=== PATIENT | male | born 1945 | race Caucasian/White ===

== ENCOUNTER 2019-04-18 11:37 | Outpatient (CLI) | payer MEDICARE, OTHER ==
[2019-04-18 19:19] LABS: CHOL/HDL RATIO 3.1 (<5.0); CHOLESTEROL 234 mg/dL; HDL CHOLESTEROL 75 mg/dL; LDL CHOLESTEROL,CALCULATED 137 mg/dL; LDL/HDL RATIO 1.8 (<3.6); VLDL CHOLESTEROL 22 mg/dL
== END 2019-04-18 23:59 | disposition home or self-care (01) ==
LOC: LAB.WCP 11:37
PROVIDERS: ATTEND Physician Assistant
DX: Z79.899 Other long term (current) drug therapy (principal); Z12.5 Encounter for screening for malignant neoplasm of prostate
CPT/HCPCS: 36415; 80061; G0103; 83721; 84153

== ENCOUNTER 2019-04-28 08:00 | Outpatient (CLI) | payer MEDICARE, OTHER ==
[2019-04-28 12:07] LABS: BASOPHILS # (AUTO) 0.1 10^3/uL (0.0-0.1); BASOPHILS % (AUTO) 1.1 %; EOSINOPHILS # (AUTO) 0.2 10^3/uL (0.0-0.7); EOSINOPHILS % (AUTO) 3.2 %; HGB - HEMOGLOBIN 14.7 g/dL (14.0-18.0); LYMPHOCYTES # (AUTO) 1.3 10^3/uL (1.5-3.5); LYMPHOCYTES % (AUTO) 21.2 %; MEAN CORPUSCULAR HGB CONC 33.5 g/dL (32.0-36.0); MEAN CORPUSCULAR VOLUME 98.4 fL (80.0-94.0); MEAN PLATELET VOLUME 11.1 fL (7.4-11.4); MONOCYTES % (AUTO) 15.5 %; NEUTROPHILS # (AUTO) 3.7 10^3/uL (1.5-6.6); NEUTROPHILS % (AUTO) 58.7 %; PLT - PLATELET COUNT 290 10^3/uL (130-450); RED BLOOD COUNT 4.46 10^6/uL (4.70-6.10); RED CELL DISTRIBUTION WIDTH 13.8 % (12.0-15.0); WHITE BLOOD COUNT 6.3 x10^3/uL (4.8-10.8)
[2019-04-28 12:51] LABS: ALBUMIN 3.9 g/dL (3.2-5.5); ALBUMIN/GLOBULIN RATIO 1.1 (1.0-2.2); BILIRUBIN,TOTAL 0.8 mg/dL (0.2-1.0); CALCIUM 9.8 mg/dL (8.5-10.3); CREATININE 0.9 mg/dL (0.6-1.2); TOTAL PROTEIN 7.3 g/dL (6.7-8.2)
== END 2019-04-28 23:59 | disposition home or self-care (01) ==
LOC: LAB.WCP 08:00
PROVIDERS: ATTEND Physician Assistant
DX: I10 Essential (primary) hypertension (principal)
CPT/HCPCS: 36415; 80053; 85025

== ENCOUNTER 2019-09-22 12:59 | Outpatient (CLI) | payer MEDICARE, OTHER ==
--- NOTE | 2019-09-23 08:34 | XRAY Report ---
Reason: ESSENTIAL (PRIMARY) HYPERTENSION Procedure Date: 09/22/2019 Accession Number: [id number] / [id number] Procedure: XR - Chest 2 View X-Ray CPT Code: 06576 Final Report FULL RESULT: EXAM: CHEST RADIOGRAPHY EXAM DATE: 09/22/2019 01:11 PM. CLINICAL HISTORY: Hypertension COMPARISON: None. TECHNIQUE: 2 views. FINDINGS: Lungs/Pleura: Lungs are well expanded. There is emphysema. There is reticular opacity with the lower lungs which may represent atelectasis or scarring. No evidence of acute consolidation. No pleural effusion. No pneumothorax. Mediastinum: Heart size is within normal limits. There are thoracic aorta tortuosity and calcification. Other: Bones are osteopenic. 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 IMPRESSION: 1. Lungs are well-expanded. There is emphysema. 2. There is reticular opacity within the lower lungs which may represent scarring or atelectasis. 3. There is thoracic aorta tortuosity and calcification. 4. 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 5. No acute intrathoracic plain film abnormality. RADIA
== END 2019-09-22 13:00 | disposition home or self-care (01) ==
LOC: DI 12:59
PROVIDERS: ATTEND Surgery
DX: Z01.810 Encounter for preprocedural cardiovascular examination (principal); K40.20 Bilateral inguinal hernia, without obstruction or gangrene, not specified as recurrent; J43.9 Emphysema, unspecified; R91.8 Other nonspecific abnormal finding of lung field; I70.0 Atherosclerosis of aorta
CPT/HCPCS: 71046

== ENCOUNTER 2019-09-25 07:04 | Day surgery (SDC) | payer MEDICARE, OTHER ==
[2019-09-25] MEDS ORDERED: LACTATED RINGERS 1,000 ML IV ONE (08:05)
[2019-09-25] MEDS ORDERED: BUPIVACAINE 0.5% PF 30 ML VIAL ONE (08:24)
[2019-09-25] MEDS ORDERED: LIDOCAINE 1%-EPI 1:100000 20 ML MDV ONE (08:24)
[2019-09-25] MEDS ORDERED: ceFAZolin 1 GM VIAL ONE (08:25)
--- NOTE | 2019-09-25 08:25 | ANESTHESIA ---
Pre-Anesthesia VS, & Labs - Diagnosis bilateral inguinal hernias - Procedure bilateral inguinal hernia repairs with mesh Vital Signs: Temp Pulse Resp BP Pulse Ox 36.6 C 87 16 145/79 H 97 09/25/19 07:29 09/25/19 07:29 09/25/19 07:29 09/25/19 07:29 09/25/19 07:29 Height 5 ft 11 in Weight (kg) 81.8 kg - NPO >8 hours Last Fluid Intake: black coffee at 0530 Home Medications and Allergies Home Medications: Ambulatory Orders amLODIPine [Norvasc] 10 mg PO DAILY 09/22/19 amLODIPine [Norvasc] 10 mg PO DAILY 09/22/19 Allergies/Adverse Reactions: Allergies Allergy/AdvReac Type Severity Reaction Status Date / Time No Known Drug Allergies Allergy Verified 09/22/19 12:46 Anes History & Medical History - Anesthetic History Anesthesia Complications: reports: No previous complications - Medical History Cardiovascular: reports: Hypertension, Other (>4 mets) Pulmonary: reports: None Gastrointestinal: reports: None Urinary: reports: None Neuro: reports: None Musculoskeletal: reports: None Endocrine/Autoimmune: reports: None Blood Disorders: reports: None Skin: reports: Psoriasis Smoking Status: Former smoker (Quit 20 years ago) Psychosocial: reports: Alcohol (Daily beer and wine use) - Surgical History Eyes Ears Nose Throat (EENT): Tonsil/Adenoidectomy Orthopedic: Other Exam General: Alert, Oriented x3, Cooperative, No acute distress Dental: Partials Upper, Partials Lower Mouth Openin Fingerbreadth Neck Mobility: Normal Mallampati classification: III Thyromental Distance: greater than 6 cm Respiratory: Lungs clear, Normal breath sounds, No respiratory distress, No accessory muscle use Cardiovascular: Regular rate, Normal S1, Normal S2, No murmurs Mental/Cognitive Status: Alert/Oriented X3, Normal for patient Plan Anesthesia Type: General Consent for Procedure(s) Verified and Reviewed: Yes Code Status: Attempt Resuscitation ASA classification: 2-Mild systemic disease Is this case an emergency?: No
[2019-09-25] MEDS ORDERED: fentaNYL 100 MCG/2 ML VIAL IVP ONE (09:50)
[2019-09-25] MEDS ORDERED: PROPOFOL 200 MG/20 ML VIAL IVP ONE (09:50)
[2019-09-25] MEDS ORDERED: DEXAMETHASONE 4 MG/ML VIAL IVP ONE (09:50)
[2019-09-25] MEDS ORDERED: ePHEDrine 50 MG/ML VIAL IVP ONE (09:50)
[2019-09-25] MEDS ORDERED: LIDOCAINE-MPF 2% 5 ML VIAL IM ONE (09:50)
[2019-09-25] MEDS ORDERED: ONDANSETRON 4 MG/2 ML VIAL IVP ONE (09:50)
[2019-09-25] MEDS ORDERED: MIDAZOLAM 2 MG/2 ML VIAL IVP ONE (09:50)
[2019-09-25] MEDS ORDERED: ceFAZolin 1 GM VIAL IR ONE (10:16)
[2019-09-25] MEDS ORDERED: BUPIVACAINE 0.5% PF 30 ML VIAL INFIL ONE (10:17)
[2019-09-25] MEDS ORDERED: LIDOCAINE 1%-EPI 1:100000 30 ML MDV SUBQ ONE (10:17)
[2019-09-25] MEDS ORDERED: IBUPROFEN 600 MG TABLET PO PRN (11:25)
[2019-09-25] MEDS ORDERED: ACETAMINOPHEN 325 MG TABLET PO PRN (11:25)
[2019-09-25] MEDS ORDERED: ONDANSETRON 4 MG/2 ML VIAL IVP PRN (11:25)
[2019-09-25] MEDS ORDERED: oxyCODONE 5 MG TABLET PO PRN (11:25)
--- NOTE | 2019-09-25 11:25 | OPERATIVE REPORT ---
Operative Report - General Procedure Date: 09/25/19 Planned Procedure: Bilateral Inguinal Hernia Repair Pre-Op Diagnosis: Bilateral Inguinal Hernia Procedure Performed: Bilateral Inguinal Hernia Repair Post Op Diagnosis: Bilateral Inguinal Hernia - Procedure Note Primary Surgeon: Angela Anesthesia Provider: ANDRAE Beatty Anesthesia Technique: General LMA, Local, Regional block IV Fluids (mL): 500 Estimated Blood Loss (mL): 5 Indications: Large bilateral inguinal hernias Findings: Large indirect hernias bilaterally. Complications: None apparent - Other Other Information/Narrative: After obtaining informed consent, the patient is brought to the operating room and placed in the supine position on the operating table. Following successful induction of general endotracheal anesthesia, appropriate padding of all bony prominences, and placement of appropriate monitors, the abdomen was prepped and draped in the standard surgical fashion. A timeout was held per scope protocol. All elements of the surgical safety checklist were followed before, during, and after the procedure. We began the procedure by infiltrating a mixture of local anesthetics medial to the anterior superior iliac spine on the right. This was done to create an ileal inguinal nerve block. We then selected a site for an incision in the right lower quadrant just superior and lateral to the right pubic tubercle. This area was anesthetized with additional local anesthetic and an incision was created here.The incision was carried down through the skin and subcutaneous tis betty to reveal the hernia. The external oblique aponeurosis was competed attenuated over the hernia sac. We were able to identify it laterally. A self retaining retractor was carefully placed. The ilioinguinal nerve was immediately identified and divided. We continued by identifying the spermatic cord and gently encircling it with a Karyna drain. The hernia sac was carefully dissected free from the cord structures and was noted to be in the inferior medial position. The sac was in the indirect position. It was very large and involved a loop of colon as well as preperitoneal fat. We carefully dissected the spermatic cord from the sac. The hernia sac was then placed back into the abdominal cavity. We elected to repair the hernia with a large Prolene hernia system mesh implant. This was dipped in Ancef containing solution and then deployed into the defect. The posterior leaflet was straightened and flattened in the preperitoneal space. The anterior leaflet was then nicked medi ally to provide a place for the spermatic cord and then closed with a Vicryl suture. The more inferior aspect was then sewn to Ashok's ligament medially. Laterally it was tucked under the external oblique aponeurosis. The wound was checked for hemostasis and irrigated with warm saline solution. It was aspirated free of all fluid and particulate matter. The extra oblique aponeurosis was then closed with a running locking Vicryl suture Stefany's fascia was closed with Vicryl suture and Monocryl stitches were placed in the skin. We turned our attention to the left side. We began the procedure by infiltrating a mixture of local anesthetics medial to the anterior superior iliac spine on the Left. This was done to create an ileal inguinal nerve block. We then selected a site for an incision in the Left lower quadrant just superior and lateral to the Left pubic tubercle. This area was anesthetized with additional local anesthetic and an incision was created here.The incision was carried down through the skin and subcutaneous tissue to reveal the fascia of the external oblique aponeurosis. Retractor was placed and the aponeurosis was opened in direction of its fibers. The ilioinguinal nerve was immediately identifiedAnd preserved. We continued by identifying the spermatic cord and gently encircling it with a Arcadia drain. The hernia sac was carefully dissected free from the cord structures and was noted to be in the inferior medial position. The sac was in the indirect position. We carefully dissected the spermatic cord from the sac. The hernia sac was then placed back into the abdominal cavity. We elected to repair the hernia with a large Prolene hernia system mesh implant. This was dipped in Ancef containing solution and then deployed into the defect. The posterior leaflet was straightened and flattened in the preperitoneal space. The anterior leaflet was then nicked medially to provide a place for the spermatic cord and then closed with a Vicryl suture. The more inferior aspect was then sewn to Ashok's ligament medially. Laterally it was tucked under the external oblique aponeurosis. The wound was checked for hemostasis and irrigated with warm saline solution. It was aspirated free of all fluid and particulate matter. The extra oblique aponeurosis was then closed with a running locking Vicryl suture Stefany's fascia was closed with Vicryl suture and Monocryl stitches were placed in the skin. All sponge, needle, and instrument counts were correct at the conclusion of the case. The patient was allowed awaken from anesthesia without difficulty and taken to the postanesthesia care unit in good condition.
[2019-09-25] MEDS ORDERED: oxyCODONE 5 MG TABLET ONE (12:25)
[2019-09-25 12:36] VITALS: BP 136/69
== END 2019-09-25 07:05 | disposition home or self-care (01) ==
LOC: SDS 07:04
PROVIDERS: ATTEND Surgery
PROC: 0YUA0JZ Supplement Bilateral Inguinal Region with Synthetic Substitute, Open Approach (ICD-10-PCS; principal; 2019-09-25 08:30)
DX: K40.20 Bilateral inguinal hernia, without obstruction or gangrene, not specified as recurrent (principal); I10 Essential (primary) hypertension; Z87.891 Personal history of nicotine dependence
CPT/HCPCS: 49505; A9270; C1781; J7120

== ENCOUNTER 2020-06-12 08:00 | Outpatient (CLI) | payer MEDICARE, OTHER ==
[2020-06-12 12:11] LABS: BASOPHILS # (AUTO) 0.1 10^3/uL (0.0-0.1); BASOPHILS % (AUTO) 1.3 %; EOSINOPHILS # (AUTO) 0.2 10^3/uL (0.0-0.7); EOSINOPHILS % (AUTO) 2.2 %; HGB - HEMOGLOBIN 15.8 g/dL (14.0-18.0); LYMPHOCYTES % (AUTO) 14.9 %; MEAN CORPUSCULAR HEMOGLOBIN 32.7 pg (27.0-31.0); MEAN CORPUSCULAR VOLUME 96.3 fL (80.0-94.0); MEAN PLATELET VOLUME 11.4 fL (7.4-11.4); MONOCYTES # (AUTO) 1.1 10^3/uL (0.0-1.0); MONOCYTES % (AUTO) 15.8 %; NEUTROPHILS # (AUTO) 4.4 10^3/uL (1.5-6.6); NEUTROPHILS % (AUTO) 65.5 %; PLT - PLATELET COUNT 258 10^3/uL (130-450); RED BLOOD COUNT 4.83 10^6/uL (4.70-6.10); WHITE BLOOD COUNT 6.7 x10^3/uL (4.8-10.8)
[2020-06-12 12:31] LABS: ALBUMIN 3.8 g/dL (3.2-5.5); ALKALINE PHOSPHATASE 68 IU/L (42-121); ALT ALANINE AMINOTRANSFERASE 30 IU/L (10-60); AST ASPARTATE AMINOTRANSFERASE 35 IU/L (10-42); BUN - BLOOD UREA NITROGEN 12 mg/dL (6-20); CALCIUM 9.8 mg/dL (8.5-10.3); CARBON DIOXIDE - CO2 26 mmol/L (21-32); CHLORIDE 96 mmol/L (101-111); CHOL/HDL RATIO 3.1 (<5.0); CHOLESTEROL 173 mg/dL; GLUCOSE 106 mg/dL (70-100); HDL CHOLESTEROL 56 mg/dL; LDL CHOLESTEROL,CALCULATED 103 mg/dL; LDL/HDL RATIO 1.8 (<3.6); SODIUM 131 mmol/L (135-145); TOTAL PROTEIN 7.6 g/dL (6.7-8.2); VLDL CHOLESTEROL 14 mg/dL
== END 2020-06-12 23:59 | disposition home or self-care (01) ==
LOC: LAB.WCP 08:00
PROVIDERS: ATTEND Physician Assistant Medical
DX: I10 Essential (primary) hypertension (principal); E78.5 Hyperlipidemia, unspecified; Z12.5 Encounter for screening for malignant neoplasm of prostate
CPT/HCPCS: 36415; 80053; 80061; 85025; G0103; 83721; 84153

== ENCOUNTER 2022-04-17 11:55 | Emergency (ER) | payer MEDICARE, OTHER ==
[2022-04-17] MEDS ORDERED: ONDANSETRON 4 MG/2 ML VIAL IVP STA (12:12)
[2022-04-17] MEDS ORDERED: HYDROmorphone 1 MG/ML CARPUJECT IVP STA (12:12)
--- NOTE | 2022-04-17 12:13 | ED Physician Documentation ---
History of Present Illness - Stated complaint Stated Complaint: LEG WEAKNESS - Chief complaint Chief Complaint: General - History obtained from History obtained from: Patient, Friend - Additonal information Additional information: 76-year-old gentleman with history of bilateral inguinal hernia repairs presents with groin pain starting about 2 days ago. Pain was bad enough that he has had difficulty ambulating with it. He notes a lump there. He feels like he has not been very hungry with this, and as such his bowel movements have been decreased but not absent. Denies vomiting or fevers. Review of Systems Constitutional: reports: Reviewed and negative Eyes: reports: Reviewed and negative Cardiac: reports: Reviewed and negative Respiratory: reports: Reviewed and negative PD PAST MEDICAL HISTORY - Past Medical History Cardiovascular: Hypertension, Other (>4 mets) Respiratory: None Neuro: None Endocrine/Autoimmune: None GI: None : None HEENT: Chronic vision loss Psych: None Musculoskeletal: None Derm: Psoriasis - Past Surgical History Ortho: Other HEENT: Tonsil/Adenoidectomy - Present Medications Home Medications: Ambulatory Orders Medication Instructions Recorded Confirmed amLODIPine [Norvasc] 10 mg PO DAILY 09/22/19 09/25/19 oxyCODONE [Roxicodone] 5 mg PO Q4H PRN #30 tablet 09/25/19 HYDROcod/ACETAM 5/325 [Apache 5/325] 1 - 2 tab PO Q6H PRN #20 tablet 04/17/22 - Allergies Allergies/Adverse Reactions: Allergies Allergy/AdvReac Type Severity Reaction Status Date / Time No Known Drug Allergies Allergy Verified 04/17/22 12:05 - Social History Smoking Status: Former smoker (Quit 20 years ago) PD ED PE NORMAL - Vitals Vital signs reviewed: Yes - General General: Alert and oriented X 3, No acute distress - Cardiac Cardiac: RRR, No murmur - Respiratory Respiratory: No respiratory distress, Clear bilaterally - Abdomen Abdomen: Normal bowel sounds, Soft, Non tender, Other (He has an incarcerated right inguinal hernia which is tender but without overlying skin changes. I was partially able to reduce it during exam but limited by pain and initial attempt was aborted to allow him to get some analgesia.) - Back Back: No CVA TTP, No spinal TTP - Derm Derm: Normal color, Warm and dry - Neuro Neuro: Alert and oriented X 3, Normal speech Results - Vitals Vitals: Vital Signs - 24 hr 04/17/22 04/17/22 04/17/22 12:02 13:29 13:42 Temperature 36.1 C L Heart Rate 87 83 92 Respiratory 24 17 18 Rate Blood Pressure 152/80 H 125/45 L 134/75 H O2 Saturation 99 95 96 Oxygen O2 Source Room air - Labs Labs: Laboratory Tests 04/17/22 04/17/22 12:23 12:23 WBC 8.3 RBC 4.59 L Hgb 15.7 Hct 44.7 MCV 97.4 H MCH 34.2 H MCHC 35.1 RDW 13.1 Plt Count 238 MPV 9.7 Neut # (Auto) 6.5 Lymph # (Auto) 0.7 L Taney # (Auto) 1.0 Eos # (Auto) 0.0 Baso # (Auto) 0.1 Absolute Nucleated RBC 0.00 Nucleated RBC % 0.0 Sodium 133 L Potassium 4.1 Chloride 94 L Carbon Dioxide 26 Anion Gap 13.0 BUN 16 Creatinine 1.0 Estimated GFR (MDRD) 72 L Glucose 136 H Calcium 9.9 PD MEDICAL DECISION MAKING - ED course ED course: 76-year-old gentleman presents with an incarcerated right sided hernia. I was unable to reduce it on initial examination, but after 1 mg each of Dilaudid and 2 mg of midazolam I was able to reduce it. On reexamination after the meds had worn off he was feeling much better. The hernia had recurred but I was able to reduce it more easily this time without sedationAnalgesia. It seems to slide in and out now, and discussed with him that I expected him to have some ongoing symptoms until definitive repair as well as the symptoms that would necessitate return for more urgent surgical intervention. Departure - Departure Disposition: 01 Home, Self Care Clinical Impression: Incarcerated right inguinal hernia Condition: Good Record reviewed to determine appropriate education?: Yes Instructions: ED Hernia Inguinal Follow-Up: [facility] [Provider Group] Prescriptions: HYDROcod/ACETAM 5/325 [Apache 5/325] 1 - 2 tab PO Q6H PRN #20 tablet PRN Reason: Pain Comments: We were able to get your hernia in today, but it does seem to go in and out fairly easily. Unfortunately this means I expect you to have some level of discomfort until you have it fixed. You should call the surgeons office today or Wednesday for the next available appointment for consideration for operative repair. Until then it is probably reasonable to wear a hernia belt, one option available at [facility] is: FlexaMed Right Side Inguinal Hernia Support Truss Belt with Compression Pad I sent a prescription for pain medication to [facility] in [place]. Return for new or worsening symptoms, for vomiting or other concerns. I am prescribing a short course of narcotic pain medication for you. These are potentially dangerous and addictive medications that should be used carefully. These medications may constipate you. Take an [id number] stool softener (docusate) twice daily with plenty of water while taking these medications. If you go 24 hours without a bowel movement, take [id number] miralax, per package instructions. Do not drink or drive while taking these medications. If you received narcotic or sedating medications while in the emergency department, do not drive for 24 hours. Store this medication in a safe, secure place and out of reach of children. It is a violation of federal law to give or sell this medication to another person or to use in a manner other than prescribed. The ED will not refill narcotic prescriptions, including prescriptions lost or stolen. To dispose of unwanted medications: 1. [facility] [address] in [place] has a medication drop box. They accept prescription medications (in pill form) Wednesday through Wednesday 9:00 a.m. to 5:00 p.m. 2. [facility] accepts prescription medications (in pill form only) for disposal year round. Call for more information. 3. Contact the [facility] for the next [facility] sponsored prescription d rug collection event. , [phone], or [phone]; Note that many narcotic pain relievers also contain Tylenol/acetaminophen. Please ensure that your total dose of acetaminophen from all sources does not exceed 3 g (3000 mg) per day. Discharge Date/Time: 04/17/22 13:45
[2022-04-17 12:28] LABS: BASOPHILS # (AUTO) 0.1 10^3/uL (0.0-0.1); BASOPHILS % (AUTO) 0.6 %; EOSINOPHILS % (AUTO) 0.1 %; HCT - HEMATOCRIT 44.7 % (42.0-52.0); HGB - HEMOGLOBIN 15.7 g/dL (14.0-18.0); LYMPHOCYTES # (AUTO) 0.7 10^3/uL (1.5-3.5); LYMPHOCYTES % (AUTO) 8.1 %; MEAN CORPUSCULAR HEMOGLOBIN 34.2 pg (27.0-31.0); MEAN CORPUSCULAR HGB CONC 35.1 g/dL (32.0-36.0); MEAN CORPUSCULAR VOLUME 97.4 fL (80.0-94.0); MEAN PLATELET VOLUME 9.7 fL (7.4-11.4); MONOCYTES % (AUTO) 12.3 %; NEUTROPHILS # (AUTO) 6.5 10^3/uL (1.5-6.6); NEUTROPHILS % (AUTO) 78.3 %; PLT - PLATELET COUNT 238 10^3/uL (130-450); RED BLOOD COUNT 4.59 10^6/uL (4.70-6.10); RED CELL DISTRIBUTION WIDTH 13.1 % (12.0-15.0); WHITE BLOOD COUNT 8.3 x10^3/uL (4.8-10.8)
[2022-04-17 12:38] LABS: CALCIUM 9.9 mg/dL (8.5-10.3); POTASSIUM 4.1 mmol/L (3.5-5.0)
[2022-04-17] MEDS ORDERED: MIDAZOLAM 2 MG/2 ML VIAL IVP STA (12:51)
[2022-04-17 13:45] VITALS: BP 134/75
== END 2022-04-17 13:45 | disposition home or self-care (01) ==
LOC: ED 11:55
DX: K40.30 Unilateral inguinal hernia, with obstruction, without gangrene, not specified as recurrent (principal)
CPT/HCPCS: 36415; 80048; 85025; 96374; 96375; 99283; 99284; J1170

== ENCOUNTER 2022-04-30 11:55 | Day surgery (SDC) | payer MEDICARE, OTHER ==
[2022-04-30] MEDS ORDERED: TAMSULOSIN 0.4 MG CAPSULE ONE (12:19)
[2022-04-30] MEDS ORDERED: ACETAMINOPHEN 500 MG TABLET PO ONE (12:19)
[2022-04-30] MEDS ORDERED: CEFAZOLIN 2G/50ML 0.9% NS 2 GM/50 ML BAG IV ONE (12:19)
[2022-04-30] MEDS ORDERED: LACTATED RINGERS 1,000 ML IV ONE ×2 (12:22→16:29)
[2022-04-30] MEDS: GABAPENTIN 300 MG CAPSULE PO ONE ×2 (12:47→17:24)
--- NOTE | 2022-04-30 13:06 | ANESTHESIA ---
Pre-Anesthesia VS, & Labs - Diagnosis ventral hernia - Procedure ventral hernia repair Vital Signs: Temp Pulse Resp BP Pulse Ox O2 Flow Rate 36.3 C L 70 16 174/79 H 98 0 04/30/22 12:48 04/30/22 12:48 04/30/22 12:48 04/30/22 12:48 04/30/22 12:48 04/30/22 12:48 Height: 6 ft 1 in Weight (kg): 72.5 kg Body Mass Index: 21.0 BMI Classification: Normal - NPO >8 hours Home Medications and Allergies amLODIPine [Norvasc] 10 mg PO DAILY 09/22/19 Allergies/Adverse Reactions: Allergies Allergy/AdvReac Type Severity Reaction Status Date / Time No Known Drug Allergies Allergy Verified 04/17/22 12:05 Anes History & Medical History - Anesthetic History Anesthesia Complications: reports: No previous complications Family history of Anesthesia Complications: Denies Family history of Malignant Hyperthermia: Denies - Medical History Cardiovascular: reports: Hypertension, Other Pulmonary: reports: None Gastrointestinal: reports: None Urinary: reports: None Neuro: reports: None Musculoskeletal: reports: None Endocrine/Autoimmune: reports: None Blood Disorders: reports: None Skin: reports: Psoriasis Smoking Status: Former smoker (Quit 20 years ago) - Surgical History Eyes Ears Nose Throat (EENT): reports: Tonsil/Adenoidectomy Orthopedic: reports: Other Exam General: Alert, Oriented x3, Cooperative Dental: Dentures full Upper, Dentures full Lower Mouth Openin Fingerbreadth Neck Mobility: Normal Mallampati classification: II Thyromental Distance: 4-6 cm Respiratory: Lungs clear Cardiovascular: Regular rate Plan Anesthesia Type: General Consent for Procedure(s) Verified and Reviewed: Yes Code Status: Attempt Resuscitation ASA classification: 2-Mild systemic disease Is this case an emergency?: No
[2022-04-30] MEDS ORDERED: METOCLOPRAMIDE 10 MG/2 ML VIAL IVP PRN (13:08)
[2022-04-30] MEDS ORDERED: MORPHINE 2 MG/ML CARPUJECT IVP PRN (13:08)
[2022-04-30] MEDS ORDERED: NALOXONE 0.4 MG/ML VIAL IVP PRN (13:08)
[2022-04-30] MEDS ORDERED: fentaNYL 100 MCG/2 ML VIAL IVP PRN (13:08)
[2022-04-30] MEDS ORDERED: ONDANSETRON 4 MG/2 ML VIAL IVP PRN (13:08)
[2022-04-30] MEDS ORDERED: ATROPINE ABBOJECT 1 MG/10 ML SYRINGE IVP PRN (13:08)
[2022-04-30] MEDS ORDERED: HYDROmorphone 0.5 MG/0.5 ML SYRINGE IVP PRN (13:08)
[2022-04-30] MEDS ORDERED: ePHEDrine 50 MG/ML VIAL IVP PRN (13:08)
[2022-04-30] MEDS ORDERED: LIDOCAINE-MPF 2% 5 ML VIAL ONE (13:15)
[2022-04-30] MEDS ORDERED: PROPOFOL 200 MG/20 ML VIAL IVP ONE (13:15)
[2022-04-30] MEDS ORDERED: ONDANSETRON 4 MG/2 ML VIAL ONE (13:17)
[2022-04-30] MEDS ORDERED: DEXAMETHASONE 4 MG/ML VIAL ONE (13:17)
[2022-04-30] MEDS ORDERED: ROCURONIUM 50 MG/5 ML VIAL ONE (13:17)
[2022-04-30] MEDS ORDERED: BUPIVACAINE 0.25% PF 10 ML VIAL ONE ×2 (13:37→14:55)
[2022-04-30] MEDS ORDERED: LIDOCAINE 1% 50 ML MDV ONE (13:37)
[2022-04-30] MEDS ORDERED: LACTATED RINGERS 1,000 ML IV SCH (14:00)
[2022-04-30] MEDS ORDERED: fentaNYL 100 MCG/2 ML VIAL ONE (14:17)
[2022-04-30] MEDS ORDERED: BUPIVACAINE 0.25% PF 30 ML VIAL SUBQ ONE (14:38)
[2022-04-30] MEDS ORDERED: SUGAMMADEX 200 MG/2 ML VIAL IVP ONE (16:16)
[2022-04-30] MEDS ORDERED: oxyCODONE 5 MG TABLET PO PRN (16:29)
[2022-04-30] MEDS ORDERED: ACETAMINOPHEN 500 MG TABLET PO PRN (16:30)
--- NOTE | 2022-04-30 16:33 | OPERATIVE REPORT ---
Operative Report - General Procedure Date: 04/30/22 Planned Procedure: open repair recurrent right inguinal hernia Pre-Op Diagnosis: incarcerated recurrent right inguinal hernia Procedure Performed: open repair incarcerated recurrent slider type hernia excision ilioinguinal and iliohypogastric nerve Post Op Diagnosis: recurrent incarcerated slider type inguinal hernia - Procedure Note Primary Surgeon: nenita tom Anesthesia Technique: General LMA, Local Pathology: not sent Estimated Blood Loss (mL): 10 Drain/Tube Type: Other (none) Findings: as above. prior mesh densely scarred to cord and completely free from the abdominal wall nerves scarred to mesh - Other Other Information/Narrative: The patient was properly identified brought to the operating room and placed in supine position. Laryngeal mask anesthesia was induced. Hernia was incarcerated. A ball of mesh was palpable in the subcutaneous tissue. Sequential compression devices were placed. He was prepped and draped in a sterile fashion and given preoperative antibiotics. A 6 cm incision was made 2 cm cephalad of the pubic tubercle. Dissection proceeded with cutting current. Superficial epigastric vein was divided and tied with 3-0 Vicryl. Aponeurosis was opened in the direction of its fibers. Cord structures hernia sac and ball of mesh was mobilized and brought up. The shelving border of Poupart's ligament was identified and defined. The ilioinguinal nerve was densely scarred towards the mesh and fascia. This was excised back to towards muscle. The mesh was completely free-floating densely scarred to the cord structures. It was not adherent to the abdominal wall or the pubic tubercle. The cord structures were splayed apart and went around the mesh. The mesh was carefully mobilized off from the cord structures except for the distal 10%. 90% of the mesh was removed from the cord structures. The iliohypogastric nerve was also densely scarred to the mesh. The iliohypogastric nerve was removed back to musculature. The hernia sac was then opened. He had a slider type hernia with colon. The colon was carefully mobilized off from the hernia sac using sharp dissection and reduced. The hernia sac was then closed with a 3-0 silk pursestring suture. Herniated preperitoneal adipose tissue was removed with clamps and 3-0 silk tie. Polypropylene mesh was then cut to size and placed Mingo fashion. The mesh was secured with multiple interrupted 0 Ethibond sutures at the pubic tubercle area along the shelving border of Poupart's ligament and medially along musculature. The medial tail of the mesh was secured to the shelving border Poupart's ligament with 3 interrupted 0 Ethibond sutures recreating the internal ring of appropriate size. There were no apparent complications. The aponeurosi s was closed with a running 2-0 Vicryl suture. Stefany's was closed with interrupted 3-0 Vicryl suture. Buried interrupted subdermal 3-0 Vicryl sutures were then placed. Skin was closed with a running 4-0 Monocryl subcuticular suture. Dressing was applied. Tolerated the procedure well.
--- NOTE | 2022-04-30 17:05 | ANESTHESIA POST OP EVALUATION ---
Anesthesia Post Eval - Post Anesthesia Eval Vitals: Last Vital Signs Temp 36.5 C 04/30/22 16:55 Pulse 70 04/30/22 16:55 Resp 16 04/30/22 16:55 BP 155/73 H 04/30/22 16:55 Pulse Ox 97 04/30/22 16:55 O2 Flow Rate 0 04/30/22 12:48 CV Function Including HR & BP: Stable Pain Control: Satisfactory Nausea & Vomiting: Negative Mental Status: Baseline Respiratory Status: Airway Patent Hydration Status: Satisfactory Anesthesia Complications: None
[2022-05-01 08:46] VITALS: BP 142/79
== END 2022-05-01 09:18 | disposition home or self-care (01) ==
LOC: SDS 11:55 → MS2 15:48 → SDS 05-01 09:18
PROVIDERS: ATTEND Surgery
DX: K40.91 Unilateral inguinal hernia, without obstruction or gangrene, recurrent (principal); I10 Essential (primary) hypertension; Z87.891 Personal history of nicotine dependence
CPT/HCPCS: 49521; 64772; A9270; C1781; J0690; J7120

== ENCOUNTER 2022-05-09 12:42 | Outpatient (CLI) | payer MEDICARE, OTHER | END 2022-05-09 12:43 | disposition critical access hospital (66) | LOC: EMS 12:42 | DX: G89.18 Other acute postprocedural pain (principal); Z74.09 Other reduced mobility; R63.8 Other symptoms and signs concerning food and fluid intake | CPT/HCPCS: A0425; A0429 ==

== ENCOUNTER 2022-05-09 13:04 | Emergency (ER) | payer MEDICARE, OTHER ==
[2022-05-09 13:28] LABS: BASOPHILS % (AUTO) 0.4 %; EOSINOPHILS % (AUTO) 0.4 %; HCT - HEMATOCRIT 41.9 % (42.0-52.0); HGB - HEMOGLOBIN 14.1 g/dL (14.0-18.0); LYMPHOCYTES # (AUTO) 0.7 10^3/uL (1.5-3.5); LYMPHOCYTES % (AUTO) 6.7 %; MEAN CORPUSCULAR HEMOGLOBIN 33.3 pg (27.0-31.0); MEAN CORPUSCULAR HGB CONC 33.7 g/dL (32.0-36.0); MEAN CORPUSCULAR VOLUME 98.8 fL (80.0-94.0); MEAN PLATELET VOLUME 9.3 fL (7.4-11.4); MONOCYTES # (AUTO) 1.2 10^3/uL (0.0-1.0); MONOCYTES % (AUTO) 12.6 %; NEUTROPHILS # (AUTO) 7.7 10^3/uL (1.5-6.6); NEUTROPHILS % (AUTO) 79.6 %; PLT - PLATELET COUNT 288 10^3/uL (130-450); RED BLOOD COUNT 4.24 10^6/uL (4.70-6.10); RED CELL DISTRIBUTION WIDTH 12.8 % (12.0-15.0); WHITE BLOOD COUNT 9.7 x10^3/uL (4.8-10.8)
[2022-05-09 13:41] LABS: ALBUMIN 3.2 g/dL (3.2-5.5); ALBUMIN/GLOBULIN RATIO 0.8 (1.0-2.2); CALCIUM 9.8 mg/dL (8.5-10.3); CREATININE 0.9 mg/dL (0.6-1.2); TOTAL PROTEIN 7.2 g/dL (6.7-8.2)
[2022-05-09] MEDS ORDERED: HYDROmorphone 1 MG/ML CARPUJECT IVP STA ×3 (13:44→21:44)
--- NOTE | 2022-05-09 13:44 | ED Physician Documentation ---
History of Present Illness - Stated complaint Stated Complaint: POST SURGICAL COMPLICATIONS - Chief complaint Chief Complaint: Abd Pain - Additonal information Additional information: 76-year-old male comes to the emergency department for evaluation of severe right groin/thigh pain. He underwent a an inguinal hernia repair on the of this month with Dr. Paulie Omer. He reported that he had been recovering normally postoperatively until about 4 days ago when he went to sit up in bed when he felt a sudden sharp pain in the thigh. It radiates from the hernia operative site. It is so severe that he has difficulty standing or ambulating. There is no pain if he simply lays at rest. There have been no fevers. No nausea or vomiting. He reports constipation. Review of Systems Constitutional: reports: Reviewed and negative Throat: reports: Reviewed and negative Cardiac: reports: Reviewed and negative Respiratory: reports: Reviewed and negative GI: denies: Nausea, Vomiting : reports: Reviewed and negative Skin: reports: Other (Well-healed surgical incision of the right inguinal region) PD PAST MEDICAL HISTORY - Past Medical History Cardiovascular: Hypertension, Other Respiratory: None Neuro: None Endocrine/Autoimmune: None GI: None : None HEENT: Chronic vision loss Psych: None Musculoskeletal: None Derm: Psoriasis - Past Surgical History Ortho: Other HEENT: Tonsil/Adenoidectomy - Present Medications Home Medications: Ambulatory Orders Medication Instructions Recorded Confirmed amLODIPine [Norvasc] 10 mg PO DAILY 09/22/19 09/25/19 oxyCODONE [Roxicodone] 5 mg PO Q4H PRN #30 tablet 09/25/19 HYDROcod/ACETAM 5/325 [Bertrand 5/325] 1 - 2 tab PO Q6H PRN #20 tablet 04/17/22 oxyCODONE/ACET 5/325 [Percocet 5 1 each PO Q4-6H PRN #20 tablet 04/30/22 mg/325 mg] - Allergies Allergies/Adverse Reactions: Allergies Allergy/AdvReac Type Severity Reaction Status Date / Time No Known Drug Allergies Allergy Verified 05/09/22 13:15 - Social History Does the pt smoke?: No Smoking Status: Former smoker (Quit 20 years ago) PD ED PE EXPANDED - General General: Alert, No acute distress - Abdomen Abdomen: Other (Inguinal hernia incision appears to be healing well. Mild amount of surrounding swelling but no erythema induration or drainage.). No: Tender to palpation - Male Male : Other (No tenderness elicited of the scrotum or testes. Positive cremasteric bilaterally. Pain is appreciated very deep within the Anterior thigh region. Is absent at rest present only when he attempts to sit up or move.) - Extremities Extremities: Normal, Deformity, Right thigh (Tenderness deep palpation of the right anterior thigh only. No swelling or erythema. Distal 2+ DP pulse. 2+ femoral pulse bilaterally). No: Tenderness - GCS Eye Opening: Spontaneous Motor: Obeys Commands Verbal: Oriented Total: 15 Results - Vitals Vitals: Vital Signs - 24 hr 05/09/22 05/09/22 05/09/22 13:10 15:28 17:00 Temperature 37.3 C Heart Rate 78 86 87 Respiratory 14 17 17 Rate Blood Pressure 166/83 H 153/81 H 142/75 H O2 Saturation 98 98 96 05/09/22 05/09/22 19:00 21:00 Temperature Heart Rate 83 91 Respiratory 16 16 Rate Blood Pressure 123/72 161/80 H O2 Saturation 95 95 Oxygen O2 Source Room air - Labs Labs: Laboratory Tests 05/09/22 05/09/22 05/09/22 13:22 13:22 13:22 WBC 9.7 RBC 4.24 L Hgb 14.1 Hct 41.9 L MCV 98.8 H MCH 33.3 H MCHC 33.7 RDW 12.8 Plt Count 288 MPV 9.3 Neut # (Auto) 7.7 H Lymph # (Auto) 0.7 L Bennett # (Auto) 1.2 H Eos # (Auto) 0.0 Baso # (Auto) 0.0 Absolute Nucleated RBC 0.00 Nucleated RBC % 0.0 Sodium 132 L Potassium 4.0 Chloride 97 L Carbon Dioxide 26 Anion Gap 9.0 BUN 12 Creatinine 0.9 Estimated GFR (MDRD) 82 L Glucose 134 H Lactic Acid 1.8 Calcium 9.8 Total Bilirubin 1.0 AST 29 ALT 21 Alkaline Phosphatase 106 Total Protein 7.2 Albumin 3.2 Globulin 4.0 Albumin/Globulin Ratio 0.8 L Lipase 24 Urine Color Urine Clarity Urine pH Ur Specific [place] Urine Protein Urine Glucose (UA) Urine Ketones Urine Occult Blood Urine Nitrite Urine Bilirubin Urine Urobilinogen Ur Leukocyte Esterase Ur Microscopic Review Urine Culture Comments SARS-CoV-2 (PCR) 05/09/22 05/09/22 16:57 17:00 WBC RBC Hgb Hct MCV MCH MCHC RDW Plt Count MPV Neut # (Auto) Lymph # (Auto) Bennett # (Auto) Eos # (Auto) Baso # (Auto) Absolute Nucleated RBC Nucleated RBC % Sodium Potassium Chloride Carbon Dioxide Anion Gap BUN Creatinine Estimated GFR (MDRD) Glucose Lactic Acid Calcium Total Bilirubin AST ALT Alkaline Phosphatase Total Protein Albumin Globulin Albumin/Globulin Ratio Lipase Urine Color YELLOW Urine Clarity CLEAR Urine pH 7.0 Ur Specific [place] <=1.005 Urine Protein NEGATIVE Urine Glucose (UA) NEGATIVE Urine Ketones NEGATIVE Urine Occult Blood NEGATIVE Urine Nitrite NEGATIVE Urine Bilirubin NEGATIVE Urine Urobilinogen 1 (NORMAL) Ur Leukocyte Esterase NEGATIVE Ur Microscopic Review NOT INDICATED Urine Culture Comments NOT INDICATED SARS-CoV-2 (PCR) NOT DETECTED - Rads (name of study) US DVT right leg Radiology: Final report received (Negative for deep vein thrombosis.) CT abd Radiology: Final report received (Impacted subcapital right femoral neck fracture, appears acute to subacute. Asymmetric irregular circumferential sigmoid wall thickening. Advise colonoscopy. Fluid in the right inguinal canal likely postoperative.) PD MEDICAL DECISION MAKING - ED course Complexity details: reviewed results, re-evaluated patient, considered differential, d/w patient, d/w senior energy consultant ED course: 76-year-old male presents emergency department for evaluation of significant right thigh pain. He underwent a right inguinal hernia repair on the with Dr. Paulie Omer. He reports about 4 days ago he began having pain in the right thigh anytime he attempted to move sit up or stand. He has had no fevers and the operative site appears to be healing well. However given the recent surgery we did repeat a CT of the abdomen and pelvis. Unfortunately we do see an acute/subacute impacted subcapital right femoral neck fracture. When I discussed this finding with the patient he did report that he fell about 5 days when he ws leaning against a chair and it broke.This is most likely the cause of the fracture. Unfortunately at this time [facility] does not have any orthopedic or surgical services available until early Wednesday. Thus we will begin the process [facility]. 1999: I have spoken with Dr. Saldivar orthopedic surgeon through [facility]. He feels that the patient should be transferred for for their correction of his right subcapital femoral neck fracture. He feels the patient would benefit from either a total hip arthroplasty versus a total hip replacement. He tentatively accepts the patient in transfer though we are cautioned that currently there are no beds available. The [facility] transfer center is encouraging us to continue to reach out to other [facility] to see if a bed may be available sooner [id number]: I have been notified that a bed is available for the patient at [facility]. Accepting physician is Dr. Saldivar. Patient will be transported via BLS. Appropriate COBRA paperwork completed. I have notified the patient of the intention to transfer and he is in agreement. He remains hemodynamically stable. Departure - Departure Disposition: 02 Transfer Acute Care Hosp Clinical Impression: Mural thickening of sigmoid colon Femoral neck fracture Qualifiers: Encounter type: initial encounter Fracture type: closed Laterality: right Qualified Code(s): S72.001A - Fracture of unspecified part of neck of right femur, initial encounter for closed fracture Condition: Stable Record reviewed to determine appropriate education?: Yes
--- NOTE | 2022-05-09 15:41 | CT Report ---
PROCEDURE: CT abdomen pelvis with contrast INDICATIONS: s/p inguinal hernia repair; pain in thigh CONTRAST: IV CONTRAST: Optiray 320 ml: 100 PO CONTRAST: *NO PO CONTRAST TECHNIQUE: After the administration of contrast, 5 mm thick sections acquired from the diaphragms to the sym physis. 5 mm thick coronal and sagittal reformats were acquired. For radiation dose reduction, the following was used: automated exposure control, adjustment of mA and/or kV according to patient size . COMPARISON: None. FINDINGS: Lower thorax: The lung bases are clear. Heart size normal. No hiatal hernia. Right basilar scarring . Liver: Liver is diffusely decreased attenuation relative to the spleen without focal mass lesion Biliary system: No calcified cholelithiasis or pericholecystic inflammation. No evidence of bile du ct dilatation. Pancreas: Unremarkable without mass or inflammation evident. Spleen: Normal in size and density. Adrenals: Normal morphology and density. Reproductive system: Unremarkable as visualized. Urinary system: Normal renal size and attenuation. No renal calculi, hydronephrosis, or solid mass p resent. Urinary bladder unremarkable. Left renal scarring. Gastrointestinal system: The bowel appears unremarkable with no evidence of bowel obstruction or inf lammation. The stomach appears unremarkable. Asymmetric circumferential wall thickening involving the mid sigmoid with distortion of the surrounding peritoneum. No evidence of significant inflammatory c hange. Appendix: No findings to suggest acute appendicitis. Peritoneal spaces: No mesenteric or retroperitoneal adenopathy. No free air. No free fluid. Vasculature: Infrarenal abdominal aortic aneurysm measures up to 3.3 cm. Musculoskeletal: Normal bone mineralization. No acute fractures. There is fluid distention of the r ight inguinal canal. No left inguinal hernia. There is an impacted right subcapital femoral neck frac ture noted. Fusion of the sacroiliac joints as well as the thoracolumbar calcification of the anterio r and posterior longitudinal ligaments. IMPRESSION: 1. Impacted subcapital right femoral neck fracture, appears acute to subacute. 2. Asymmetric irregular circumferential sigmoid wall thickening. Advise colonoscopy to evaluate for c olon cancer. 3. Fluid in the right inguinal canal may be postoperative. Consider follow-up ultrasound 4. Probable ankylosing spondylitis Reviewed by: Ayush Shannon MD on 05/09/2022 2:39 PM [facility] Approved by: Ayush Shannon MD on 05/09/2022 2:39 PM [facility] Station ID: [id number]
--- NOTE | 2022-05-09 15:57 | Ultrasound Report ---
PROCEDURE: Duplex Ext Veins Right INDICATIONS: severe pain right thigh after hernia repair TECHNIQUE: Real-time imaging, as well as color and pulse Doppler interrogation, were performed of the lower extr emity deep veins from the inguinal ligament to the popliteal fossa. COMPARISON: None. FINDINGS: The deep veins are normally compressible, and free of intraluminal thrombus. Color and pu lse Doppler demonstrate normal phasic intraluminal flow. There is normal augmentation response to di stal compression maneuver. IMPRESSION: No evidence of deep venous thrombosis, right lower extremity Reviewed by: Ayush Shannon MD on 05/09/2022 2:56 PM [facility] Approved by: Ayush Shannon MD on 05/09/2022 2:56 PM [facility] Station ID: [id number]
[2022-05-09 17:06] LABS: BILIRUBIN,URINE NEGATIVE (NEGATIVE); GLUCOSE, URINE (UA) NEGATIVE (NEGATIVE); KETONES,URINE (UA) NEGATIVE (NEGATIVE); LEUKOCYTE ESTERASE, URINE NEGATIVE (NEGATIVE); NITRITE,URINE NEGATIVE (NEGATIVE); OCCULT BLOOD,URINE NEGATIVE (NEGATIVE); PROTEIN,URINE NEGATIVE (NEGATIVE); UROBILINOGEN,URINE 1 (NORMAL) E.U./dL (NORMAL)
[2022-05-09 17:10] LABS: CLARITY,URINE CLEAR (CLEAR)
[2022-05-09] MEDS ORDERED: SODIUM CHLORIDE 0.9% 1,000 ML IV STA (18:02)
[2022-05-09] MEDS ORDERED: oxyCODONE 5 MG TABLET PO STA (21:43)
[2022-05-10 00:19] VITALS: BP 154/73
== END 2022-05-10 00:24 | disposition short-term general hospital (02) ==
LOC: EDUNIT# → ED 13:04
DX: S72.001A Fracture of unspecified part of neck of right femur, initial encounter for closed fracture (principal); X58.XXXA Exposure to other specified factors, initial encounter; K63.9 Disease of intestine, unspecified; I10 Essential (primary) hypertension; Z87.891 Personal history of nicotine dependence; Z20.822 Contact with and (suspected) exposure to COVID-19
CPT/HCPCS: 36415; 74177; 80053; 81003; 83605; 83690; 85025; 87635; 93971; 96374; 96376; 99284; 99285; A9270; J1170; Q9967; 81001; 87086

== ENCOUNTER 2022-07-18 12:35 | Outpatient (CLI) | payer MEDICARE, OTHER ==
[2022-07-18] MEDS ORDERED: DIATRIZOATE MEGLU/DIATRIZO SOD 30 ML BOTTLE PO ONE ×2 (12:52→17:18)
[2022-07-18] MEDS ORDERED: iohexoL-300 100 ML VIAL ONE (12:52)
--- NOTE | 2022-07-18 14:14 | CT Report ---
PROCEDURE: ABDOMEN/PELVIS W INDICATIONS: LLQ ABDOMINAL PAIN CONTRAST: 100ml omni 300 TECHNIQUE: After the administration of IV and oral contrast, 5 mm thick sections acquired from the diaphragms to the symphysis. 5 mm thick coronal and sagittal reformats were acquired. For radiation dose reducti on, the following was used: automated exposure control, adjustment of mA and/or kV according to ming ent size. COMPARISON: 05/09/2022 CT FINDINGS: Image quality: Excellent. ABDOMEN: Lung bases: Bibasilar scarring. Heart size is normal. Solid organs: Liver and spleen are normal in size and enhancement. Diffusely decreased hepatic dens ity. Gallbladder is within normal limits Biliary system is non dilated. Pancreas enhances normally. No adrenal nodules. Kidneys demonstrate normal size and enhancement, without hydronephrosis. Peritoneum and bowel: There is an exophytic mass arising from the sigmoid colon within the mid pelvis , measuring roughly 48 mm diameter which demonstrates multiple soft tissue density nodules at its mar gins. Moderate thickening of the sigmoid colon proximal and distal to this lesion is present. Moderat e fat stranding within the presacral space. No free fluid or air. Nodes and vessels: No retroperitoneal or mesenteric adenopathy by size criteria. IVC is patent. Infr arenal abdominal aortic aneurysm measuring 34 mm. There appears to be thrombosis of the inferior mese nteric vein. Miscellaneous: No ventral hernias. PELVIS: Genitourinary: Bladder wall thickness is normal. Miscellaneous: No inguinal hernias or adenopathy. Bones: No suspicious bony lesions. Right hip arthroplasty. No vertebral body compression fractures. IMPRESSION: 1. Exophytic sigmoid colon mass associated with spread into the adjacent soft tissues. 2. 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 3. Infrarenal abdominal aortic aneurysm. Reviewed by: Ousmane Guido MD on 07/18/2022 1:13 PM [facility] Approved by: Ousmane Guido MD on 07/18/2022 1:13 PM [facility] Station ID: [id number]
[2022-07-18] MEDS ORDERED: iohexoL-300 100 ML VIAL IVP ONE (17:18)
== END 2022-07-18 12:36 | disposition home or self-care (01) ==
LOC: DI 12:35
PROVIDERS: ATTEND Family Medicine
DX: K63.89 Other specified diseases of intestine (principal); R93.49 Abnormal radiologic findings on diagnostic imaging of other urinary organs; I71.43 Infrarenal abdominal aortic aneurysm, without rupture
CPT/HCPCS: 74177; Q9963; Q9967

== ENCOUNTER 2022-08-14 10:36 | Day surgery (SDC) | payer MEDICARE, OTHER ==
[2022-08-14] MEDS ORDERED: LACTATED RINGERS 1,000 ML IV ONE (10:40)
--- NOTE | 2022-08-14 11:01 | ANESTHESIA ---
Pre-Anesthesia VS, & Labs - Diagnosis abnormal CT of colon - Procedure colonoscopy Vital Signs: Temp Pulse Resp BP Pulse Ox O2 Flow Rate 36.0 C L 87 16 177/89 H 98 08/14/22 10:40 08/14/22 10:40 08/14/22 10:40 08/14/22 10:40 08/14/22 10:40 Height: 6 ft 1 in Weight (kg): 73 kg Body Mass Index: 21.2 BMI Classification: Normal - NPO >8 hours Last Fluid Intake: am prep - Lab Results Lab results reviewed: Yes Home Medications and Allergies Allergies/Adverse Reactions: Allergies Allergy/AdvReac Type Severity Reaction Status Date / Time No Known Drug Allergies Allergy Verified 05/09/22 13:15 Anes History & Medical History - Anesthetic History Anesthesia Complications: reports: No previous complications Family history of Anesthesia Complications: Denies Family history of Malignant Hyperthermia: Denies - Medical History Cardiovascular: reports: Hypertension, Other Pulmonary: reports: None Gastrointestinal: reports: None Urinary: reports: None Neuro: reports: None Musculoskeletal: reports: None Endocrine/Autoimmune: reports: None Blood Disorders: reports: None Skin: reports: Psoriasis Smoking Status: Former smoker (Quit 20 years ago) - Surgical History General: reports: Colonoscopy Eyes Ears Nose Throat (EENT): reports: Tonsil/Adenoidectomy Orthopedic: reports: Other Exam General: Alert, Oriented x3, Cooperative Plan Anesthesia Type: Total IV Consent for Procedure(s) Verified and Reviewed: Yes Code Status: Attempt Resuscitation ASA classification: 2-Mild systemic disease Is this case an emergency?: No
--- NOTE | 2022-08-14 11:10 | ANESTHESIA ---
Pre-Anesthesia VS, & Labs - Diagnosis abnormal CT of colon - Procedure colonoscopy Vital Signs: Temp Pulse Resp BP Pulse Ox O2 Flow Rate 36.0 C L 87 16 177/89 H 98 08/14/22 10:40 08/14/22 10:40 08/14/22 10:40 08/14/22 10:40 08/14/22 10:40 Height: 6 ft 1 in Weight (kg): 73 kg Body Mass Index: 21.2 BMI Classification: Normal - NPO >8 hours Last Fluid Intake: am prep - Lab Results Lab results reviewed: Yes Home Medications and Allergies Allergies/Adverse Reactions: Allergies Allergy/AdvReac Type Severity Reaction Status Date / Time No Known Drug Allergies Allergy Verified 05/09/22 13:15 Anes History & Medical History - Anesthetic History Anesthesia Complications: reports: No previous complications Family history of Anesthesia Complications: Denies Family history of Malignant Hyperthermia: Denies - Medical History Cardiovascular: reports: Hypertension, Other Pulmonary: reports: None Gastrointestinal: reports: None Urinary: reports: None Neuro: reports: None Musculoskeletal: reports: None Endocrine/Autoimmune: reports: None Blood Disorders: reports: None Skin: reports: Psoriasis Smoking Status: Former smoker (Quit 20 years ago) History of Cancer?: No - Surgical History General: reports: Colonoscopy Eyes Ears Nose Throat (EENT): reports: Tonsil/Adenoidectomy Orthopedic: reports: Other Exam General: Alert, Oriented x3, Cooperative Dental: Partials Upper, Partials Lower Mouth Openin Fingerbreadth Neck Mobility: Normal Mallampati classification: II Thyromental Distance: 4-6 cm Respiratory: Lungs clear, Normal breath sounds, No respiratory distress Cardiovascular: Regular rate Neurological: Normal speech Mental/Cognitive Status: Alert/Oriented X3, Normal for patient Cognitive Status: Within normal limits Plan Anesthesia Type: Total IV Consent for Procedure(s) Verified and Reviewed: Yes Code Status: Attempt Resuscitation ASA classification: 2-Mild systemic disease Is this case an emergency?: No
[2022-08-14] MEDS ORDERED: PROPOFOL 500 MG/50 ML 500 MG/50 ML VIAL ONE (11:55)
[2022-08-14] MEDS ORDERED: LACTATED RINGERS 600 ML IV ONE (12:15)
--- NOTE | 2022-08-14 12:34 | ANESTHESIA POST OP EVALUATION ---
Anesthesia Post Eval - Post Anesthesia Eval Vitals: Last Vital Signs Temp 36.4 C L 08/14/22 12:09 Pulse 71 08/14/22 12:26 Resp 18 08/14/22 12:09 BP 109/53 L 08/14/22 12:26 Pulse Ox 93 08/14/22 12:09 O2 Flow Rate CV Function Including HR & BP: Stable Pain Control: Satisfactory Nausea & Vomiting: Negative Mental Status: Baseline Respiratory Status: Airway Patent Hydration Status: Satisfactory Anesthesia Complications: None
[2022-08-14 13:19] VITALS: BP 152/70
== END 2022-08-14 10:37 | disposition home or self-care (01) ==
LOC: SDS 10:36
PROVIDERS: ATTEND Surgery
PROC: 0DBM8ZX Excision of Descending Colon, Via Natural or Artificial Opening Endoscopic, Diagnostic (ICD-10-PCS; principal; 2022-08-14 12:30)
DX: C18.6 Malignant neoplasm of descending colon (principal); I10 Essential (primary) hypertension; Z87.891 Personal history of nicotine dependence
CPT/HCPCS: 45331; J7120

== ENCOUNTER 2022-08-28 11:24 | Outpatient (CLI) | payer MEDICARE, OTHER ==
--- NOTE | 2022-08-28 13:11 | XRAY Report ---
PROCEDURE: Hip w/Pelvis 2-3V RT INDICATIONS: RIGHT HIP TOTAL HIP REPLACEMENT TECHNIQUE: AP pelvis with lateral view(s) of the right hip(s). COMPARISON: CT abdomen pelvis 07/18/2022 FINDINGS: Bones: No fractures or dislocations. Pelvic ring appears intact. No suspicious bony lesions. Righ t hip arthroplasty is present. Hardware is intact without evidence of hardware fracture or periprosth etic lucency to suggest loosening. The left hip demonstrates moderate degenerative narrowing. No eros ions. Degenerative changes are present within the lower lumbar spine. Soft tissues: The visualized bowel gas pattern is normal. No suspicious soft tissue calcifications. IMPRESSION: Stable appearance of right hip arthroplasty. Reviewed by: Susan Vazquez MD on 08/28/2022 1:10 PM PST Approved by: Susan Vazquez MD on 08/28/2022 1:10 PM PST Station ID: [id number]
== END 2022-08-28 11:25 | disposition home or self-care (01) ==
LOC: DI 11:24
PROVIDERS: ATTEND Orthopaedic Surgery
DX: Z96.641 Presence of right artificial hip joint (principal)

== ENCOUNTER 2022-09-01 19:52 | Outpatient (CLI) | payer MEDICARE, OTHER | END 2022-09-01 19:53 | disposition E | LOC: EMS 19:52 ==